=== PATIENT | male | born 1985 | race African-American/Black ===

== ENCOUNTER 2017-10-06 09:16 | Outpatient (RCR) | payer OTHER | END 2017-10-20 10:13 | disposition home or self-care (01) | LOC: WSOH 09:16 | DX: S39.012A Strain of muscle, fascia and tendon of lower back, initial encounter (principal); X50.0XXA Overexertion from strenuous movement or load, initial encounter; Y92.59 Other trade areas as the place of occurrence of the external cause; Y99.0 Civilian activity done for income or pay; Z79.899 Other long term (current) drug therapy ==

== ENCOUNTER 2017-10-20 10:13 | Outpatient (RCR) | payer OTHER | END 2018-01-18 | disposition home or self-care (01) | LOC: WSOH | DX: S39.012D Strain of muscle, fascia and tendon of lower back, subsequent encounter (principal); S29.012D Strain of muscle and tendon of back wall of thorax, subsequent encounter; X50.0XXD Overexertion from strenuous movement or load, subsequent encounter; Y92.219 Unspecified school as the place of occurrence of the external cause; Y99.0 Civilian activity done for income or pay; Z79.899 Other long term (current) drug therapy ==

== ENCOUNTER 2018-05-08 10:55 | Emergency (ER) | payer OTHER ==
[~2018-05-08] VITALS: Ht 182.9 cm; Wt 125.0 kg
[2018-05-08 10:56] VITALS: TEMP 97.4
[2018-05-08] MEDS ORDERED: TOPROL XL 50MG50 MG PO (10:59)
[2018-05-08] MEDS ORDERED: NORVASC 5MG5 MG/TAB PO (10:59)
[2018-05-08] MEDS ORDERED: ZYRTEC 10MG10 MG PO (11:01)
[2018-05-08 12:35] VITALS: BP 150/90; PULSE 65
== END 2018-05-08 12:35 | disposition home or self-care (01) ==
LOC: COL.ER 10:55
DX: S06.0X0A Concussion without loss of consciousness, initial encounter (principal); S13.4XXA Sprain of ligaments of cervical spine, initial encounter; I10 Essential (primary) hypertension; V43.52XA Car driver injured in collision with other type car in traffic accident, initial encounter

== ENCOUNTER 2018-06-20 11:15 | Outpatient (RCR) | payer OTHER ==
[~2018-06-20 11:15] MED LIST: NORVASC 5MG5 MG/TAB PO; TOPROL XL 50MG50 MG PO; ZYRTEC 10MG10 MG PO
== END 2018-06-21 19:40 | disposition home or self-care (01) ==
LOC: WSPT 11:15
DX: S13.4XXA Sprain of ligaments of cervical spine, initial encounter (principal); F07.81 Postconcussional syndrome; V89.2XXA Person injured in unspecified motor-vehicle accident, traffic, initial encounter
CPT/HCPCS: G0283-GP

== ENCOUNTER 2018-06-20 12:54 | Outpatient (RCR) | payer OTHER | END 2018-06-22 09:15 | LOC: WSOH 12:54 | DX: Z01.89 Encounter for other specified special examinations (principal) ==

== ENCOUNTER → 2021-07-21 | Outpatient (CLI) | payer OTHER | LOC: COL.CARD 14:15 | DX: R00.2 Palpitations (principal) ==